=== PATIENT | female | born 1970 | race Caucasian/White ===

== ENCOUNTER → 2016-12-28 | Outpatient (CLI) | payer OTHER | LOC: COL.RAD 12-21 14:45 | DX: G31.89 Other specified degenerative diseases of nervous system (principal); K50.90 Crohn's disease, unspecified, without complications; F41.1 Generalized anxiety disorder; R20.2 Paresthesia of skin; Z80.0 Family history of malignant neoplasm of digestive organs | CPT/HCPCS: A9585 ==

== ENCOUNTER → 2017-06-13 | Outpatient (CLI) | payer OTHER | LOC: COL.RAD 07:23 | DX: M47.812 Spondylosis without myelopathy or radiculopathy, cervical region (principal); M47.814 Spondylosis without myelopathy or radiculopathy, thoracic region; R20.0 Anesthesia of skin; R90.89 Other abnormal findings on diagnostic imaging of central nervous system | CPT/HCPCS: A9585 ==

== ENCOUNTER 2017-08-14 07:45 | Outpatient (CLI) | payer OTHER ==
[~2017-08-14] VITALS: Ht 152.4 cm; Wt 56.4 kg
[2017-08-14] VITALS (8 sets, daily range): BP systolic 105–141; BP diastolic 65–86; PULSE 52–70; TEMP 97.7
[2017-08-14] MEDS ORDERED: CELEXA 20MG20 MG/TAB PO (07:55)
[2017-08-14] MEDS ORDERED: TYLENOL 325MG325 MG PO (07:56)
[2017-08-14 10:13] LABS: GLUCOSE,CSF 54 mg/dL (40-70); TOTAL PROTEIN,CSF 29 mg/dL (15-45)
[2017-08-14 10:17] LABS: CSF APPEARANCE CLEAR; CSF COLOR COLORLESS
[2017-08-14 10:18] LABS: CSF RBC 1 /mm3 (0-0)
[2017-08-14 10:25] LABS: CSF MONONUCLEAR 100 % (70-100); CSF POLYMORPHONUCLEAR 0 % (0-6)
[2017-08-16 11:15] LABS: ALBUMIN CSF 14.1 mg/dL (<=27.0); CSF IGG/ALBUMIN 0.14 (<=0.21)
[2017-08-16 11:26] LABS: CSF SYNTHESIS RATE 1.17 mg/24 h (<=12); CSF-IGG INDEX 0.61 (<=0.85); IGG/ALBUMIN SERUM 0.23 (<=0.40)
== END 2017-08-14 11:43 | disposition home or self-care (01) ==
LOC: COL.RAD 07:45
PROVIDERS: Psychiatry & Neurology Neurology
DX: G35 Multiple sclerosis (principal)